=== PATIENT | female | born 1930 | race Caucasian/White ===

== ENCOUNTER → 2016-11-21 | Outpatient (CLI) | payer OTHER, MEDICARE | LOC: FIMAGING 16:46 | PROVIDERS: ATTEND Physical Medicine & Rehabilitation | DX: M79.662 Pain in left lower leg (principal) ==

== ENCOUNTER → 2017-01-07 | Outpatient (CLI) | payer OTHER, MEDICARE | LOC: BHCLAF 11:30 | PROVIDERS: ATTEND Internal Medicine Cardiovascular Disease | DX: I35.0 Nonrheumatic aortic (valve) stenosis (principal); I34.0 Nonrheumatic mitral (valve) insufficiency; I10 Essential (primary) hypertension | CPT/HCPCS: 93306-PO ==

== ENCOUNTER 2017-03-11 12:35 | Inpatient (IN) | payer OTHER, MEDICARE ==
--- NOTE | 2017-03-11 12:54 | EDPHY ---
H & P Time Seen by Provider: 03/11/17 12:51 HPI/ROS: CHIEF COMPLAINT: Right hip pain HISTORY OF PRESENT ILLNESS: The patient presents to the ED with complaints of right hip pain after she sustained a mechanical fall 1 hour prior double. The patient did not strike her head or lose consciousness. She has no complaints of associated chest pain or shortness of breath, numbness or weakness. The patient did sustain a contusion to her right forearm. The patient is not anticoagulated. The patient was able to ambulate with a significant amount of assistance following the fall. The patient of a history of bilateral hip and knee replacement. REVIEW OF SYSTEMS: A comprehensive 10 point review of systems is otherwise negative aside from elements mentioned in the history of present illness. Source: Patient Exam Limitations: No limitations - Personal History Tetanus Vaccine Date: allergy - Medical/Surgical History Other PMH: Past medical history: Hypertension, diabetes, multiple orthopedic joint replacements - Family History Significant Family History: No pertinent family hx - Social History Smoking Status: Never smoked - Physical Exam Exam: General Appearance: Alert, no distress Head: Atraumatic Eyes: Pupils equal, round, reactive ENT, Mouth: No hemotympanum, no oral trauma Neck: Nontender, trachea midline Respiratory: No chest wall tender, subcutaneous air, lungs clear bilaterally Cardiovascular: Regular rate and rhythm Abdomen: Abdomen is soft and nontender, pelvis stable Skin: Ecchymosis noted to right arm, no abrasion or laceration Back: No midline T/L/S pain Extremities: Tenderness to palpation and decreased range of motion right hip, no appreciated Neurological: A&Ox3, normal motor function, normal sensory exam Constitutional: Initial Vital Signs Temperature (C) 36.8 C 03/11/17 12:54 Heart Rate 97 03/11/17 12:54 Respiratory Rate 18 03/11/17 12:54 Blood Pressure 181/76 H 03/11/17 12:54 O2 Sat (%) 92 03/11/17 12:54 O2 Delivery Mode Room Air Allergies/Adverse Reactions: Tetanus Toxoid,Fl *RETIRED-03/10/12 [Tetanus Toxoid,Fluid] Allergy (Severe, Verified 09/03/11 11:07) Anaphylaxis aspirin Allergy (Intermediate, Verified 09/03/11 10:14) NAUSEA/VOMITING Home Medications: Medication Instructions Recorded Atorvastatin Calcium [Lipitor] 20 mg PO HS 09/04/11 Benazepril HCl [Lotensin] 10 mg PO DAILY 09/04/11 Calcium Carbonate [Tums] 500 mg PO PRN PRN 09/04/11 Cholecalciferol Vit D3 [Vitamin D 1,000 units PO DAILY 09/04/11 1000 units] Hydrochlorothiazide [HCTZ (*)] 25 mg PO DAILY 09/04/11 Valsartan [Diovan] 80 mg PO DAILY 09/04/11 Vit C/Dl-E AC/Lut/Copper/Znox 1 each PO DAILY 09/04/11 [Preservision Softgel] metFORMIN HCL [Glucophage 500 mg 1,000 mg PO BIDMEAL 09/04/11 (*)] Medical Decision Making - Diagnostics Imaging Results: Imaging Impressions Hip X-Ray 03/11/17 12:59 Impression: 1. No acute osseous findings. 2. Lucency adjacent to cement in the greater trochanter, possibly related to loosening. Femur X-Ray 03/11/17 14:00 Impression: No acute osseous findings. ED Course/Re-evaluation: The patient presents to the ED with acute right leg pain following a mechanical fall. The patient was taken for x-rays of her pelvis, hip and femur which demonstrate no evidence of an acute fracture. The patient is unable to safely weightbear in transfer. The patient lives independently and is unable to arrange home care services this evening. The patient will require admission to the hospital for further evaluation, PT OT evaluation and possible short term SNF placement. Consultation was made with Dr. Cee Calix from the hospitalist service who will admit the patient. Differential Diagnosis: Differential diagnosis considered includes hip fracture, sprain, dislocation, hip contusion Departure - Departure Disposition: [facility] Inpatient Acute Clinical Impression: Contusion of right leg Condition: Good
[2017-03-11] MEDS ORDERED: ACETAMINOPHEN 325 MG TAB PO PRN (16:17)
[2017-03-11] MEDS ORDERED: ONDANSETRON 4 MG/2 ML VIAL IVP PRN (16:17)
[2017-03-11] MEDS ORDERED: ONDANSETRON DISINTEGRATING 4 MG TAB PO PRN (16:17)
[2017-03-11] MEDS ORDERED: traMADol 50 MG TAB PO PRN (16:29)
[2017-03-11] MEDS ORDERED: D50W 25 GM/50 ML SYR IVP PRN (16:36)
[2017-03-11] MEDS ORDERED: hydrALAZINE 10 MG TAB PO PRN (16:37)
[2017-03-11 17:14] LABS: HEMATOCRIT 37.6 % (38.0-47.0); HEMOGLOBIN 12.1 g/dL (12.6-16.3); MEAN CELL HEMOGLOBIN 31.3 pg (27.9-34.1); MEAN CELL HEMOGLOBIN CONCENTR. 32.2 g/dL (32.4-36.7); MEAN CELL VOLUME 97.4 fL (81.5-99.8); RED BLOOD CELL COUNT 3.86 10^6/uL (4.18-5.33); RED CELL DISTRIBUTION WIDTH 13.1 % (11.5-15.2)
--- NOTE | 2017-03-11 17:16 | GHP ---
[f rep st] HISTORY AND PHYSICAL DATE OF ADMISSION: 03/11/2017 CHIEF COMPLAINT: Right hip and leg pain. HISTORY OF PRESENT ILLNESS: The patient is an 86-year-old female with a history of diabetes, hypertension and prior right hip and knee replacements, who presents to the emergency department with right hip and leg pain after a fall. She states she was walking her dog and was pulled onto the curb where she lost her balance and fell directly onto her right side. She complains of pain in her right hip as well as her right leg, and has some bruising on her right forearm and elbow. She states her hip and knee replacement were many, many years ago. She sustained a previous iliac spine fractures from a prior fall, per her report. She did not hit her head or lose consciousness. She has no other symptoms such as chest pain, shortness of breath, dizziness, or palpitations. In the emergency room, she was able to ambulate though required a significant amount of assistance. She does live alone. It was felt she warranted admission for therapy services to ensure safety prior to discharging home. PAST MEDICAL HISTORY: 1. Diabetes mellitus, non-insulin dependent. 2. Hypertension. 3. Multiple orthopedic joint replacements. MEDICATIONS: Please see Vyatta for complete updated outpatient medication list. ALLERGIES: Aspirin and tetanus toxoid. SOCIAL HISTORY: The patient lives alone independently. She denies alcohol or tobacco use. FAMILY HISTORY: Reviewed and noncontributory. REVIEW OF SYSTEMS: A 10-point review of systems was performed and is negative as per HPI. OBJECTIVE: VITAL SIGNS: Temperature is 36.8, blood pressure 181/76, heart rate 97, respiratory rate 18, she is 92% on room air. GENERAL: Patient is awake, alert, oriented, in no acute distress. HEENT: Head is atraumatic, normocephalic. Pupils equal, round, and reactive to light. Extraocular muscles intact. Oropharynx is clear. Mucous membranes are moist. NECK: Supple. There is no JVD. HEART: Regular rate and rhythm. There is 2/6 systolic ejection murmur. LUNGS: Clear to auscultation bilaterally. ABDOMEN: Soft, nondistended, nontender with normoactive bowel sounds. EXTREMITIES: She has large ecchymosis over her right forearm and elbow with full range of motion and no significant tenderness over her olecranon. Her right lower extremity, she has tenderness over the greater trochanter of her right hip. Pain is increased with flexion and abduction. There is also ecchymosis noted on the anterior lateral aspect of her right knee. Extremities otherwise are warm and well perfused with 2+ peripheral pulses. Sensation is intact. LABORATORY DATA: CBC and basic metabolic panel are sent and are currently pending. IMAGING STUDIES: X-ray of the hip and femur are personally reviewed and interpreted. There is no evidence of an acute fracture. CT hip is ordered for further evaluation. ASSESSMENT/PLAN: The patient is an 86-year-old female with history of diabetes , hypertension and prior right hip and knee replacements, presents to the emergency department with right hip pain after a ground level fall. 1. Right hip and knee pain. There is no evidence of fracture. She does have previous hip and knee replacement on this side. I am going to get a CT of her hip to ensure no underlying fracture that was not identified on the initial x- rays. She will require admission for acute physical therapy, occupational therapy. We will give Tylenol, tramadol, and p.r.n. IV morphine for pain control. 2. Diabetes mellitus type 2. I am awaiting blood sugar on her Chem panel. We will continue her glipizide and Actos and add sliding scale insulin for glycemic control. 3. Hypertension. She is hypertensive on arrival. This may be hastened by her acute pain. We will continue her outpatient medications including HCTZ and losartan, and I will add p.r.n. hydralazine if needed. 4. GAVINO / CKD - baseline Cr 1.7-1.8. She may be a bit dry. Will gently hydrate and recheck in am. 5. Deep venous thrombosis prophylaxis. The patient is moderate to high risk. Will give Lovenox. CODE STATUS: Patient is full code by default. If she requires ongoing hospitalization, this needs to be redressed. DISPOSITION: Patient is admitted to observation status. Pending results of her CT scan and her ability to safely ambulate, she could be a candidate for discharge tomorrow. /[id number]/MODL MTDD
[2017-03-11 18:52] LABS: ANION GAP 14 mEq/L (8-16); CALCIUM 10.6 mg/dL (8.5-10.4); CARBON DIOXIDE 21 mEq/l (22-31); CHLORIDE 105 mEq/L (97-110); GLOMERULAR FILTRATION RATE 24; GLUCOSE 240 mg/dL (70-100); SODIUM 140 mEq/L (134-144)
[2017-03-11] MEDS: traMADol 50 MG TAB PO PRN (20:07)
[2017-03-11] MEDS: INSULIN LISPRO 100 UNIT/ML SC SCH (20:38)
[2017-03-11] MEDS: BUDESONIDE 90 MCG MDI IH SCH (20:51)
[2017-03-11] MEDS ORDERED: NS 1,000 ML IV SCH (22:30)
[2017-03-11] MEDS: MELATONIN 3 MG TAB PO PRN (22:51)
[2017-03-12 05:40] LABS: ANION GAP 8 mEq/L (8-16); CALCIUM 8.3 mg/dL (8.5-10.4); CARBON DIOXIDE 21 mEq/l (22-31); CHLORIDE 112 mEq/L (97-110); CREATININE 1.4 mg/dL (0.6-1.0); GLOMERULAR FILTRATION RATE 36; GLUCOSE 128 mg/dL (70-100); SODIUM 141 mEq/L (134-144)
[2017-03-12] MEDS: ATORVASTATIN CALCIUM 20 MG TAB PO SCH (09:11)
[2017-03-12] MEDS: glipiZIDE XL 5 MG TAB PO SCH (09:11)
[2017-03-12] MEDS: HYDROCHLOROTHIAZIDE 25 MG TAB PO SCH (09:11)
[2017-03-12] MEDS: LOSARTAN POTASSIUM 25 MG TAB PO SCH (09:11)
[2017-03-12] MEDS: PIOGLITAZONE HCL 15 MG TAB PO SCH (09:11)
[2017-03-12] MEDS: INSULIN LISPRO 100 UNIT/ML SC SCH ×3 (09:13→18:47)
[2017-03-12] MEDS: ENOXAPARIN 30 MG/0.3 ML SYR SC SCH (09:17)
[2017-03-12] MEDS: BUDESONIDE 90 MCG MDI IH SCH ×2 (09:18→20:12)
[2017-03-12] MEDS: traMADol 50 MG TAB PO PRN (09:22)
[2017-03-12] MEDS: TIOTROPIUM INHALER 18 MCG/DOSE 5 DOSE/MDI IH SCH (09:36)
[2017-03-12] MEDS ORDERED: oxyCODONE IR 5 MG TAB PO PRN (13:35)
--- NOTE | 2017-03-12 14:05 | HOSPPROG ---
Hospitalist Progress Note Assessment/Plan: Patient is an 86-year-old female with a history of diabetes, hypertension prior right hip and knee replacements. She presented to the emergency department with right hip and leg pain after she sustained a fall. She was walking her dog and was pulled onto the curb she lost her balance fell directly onto her right side. Today is my 1st encounter with the patient chart reviewed. * Right-hip pain as well as right knee pain effecting her ability to ambulate CT scan of the hip shows nothing acute hip x-ray shows nothing acute will get a knee x-ray to evaluate her right knee patient having significant difficulty ambulating with PT and OT recommendation is a assisted facility * diabetes type 2 sliding scale * acute kidney injury on chronic kidney disease baseline creatinine is 1.7-1.8 today is 1.4 after receiving IV hydration * hypertension BP 159/61 * plan. The patient will require another midnight stay. This will make her inpatient status. she is unable to walk independently and is likely to fall again Subjective: Pat is complaining of pain at the right hip and right knee area. Objective: Vital Signs Temp Pulse Resp BP Pulse Ox 36.9 C 73 16 159/61 H 90 L 03/12/17 11:16 03/12/17 11:16 03/12/17 11:16 03/12/17 11:16 03/12/17 11:16 Laboratory Results 03/11/17 Unknown 03/12/17 04:49 03/11/17 03/12/17 03/13/17 05:59 05:59 05:59 Intake Total 300 Balance 300 - Physical Exam Constitutional: uncomfortable Eyes: PERRL Ears, Nose, Mouth, Throat: hearing normal Cardiovascular: regular rate and rhythym, systolic murmur Respiratory: no respiratory distress Gastrointestinal: normoactive bowel sounds Skin: other (ecchymosis over right elbow area/ r knee with ecchymosis on lateral side) Musculoskeletal: muscular tenderness, generalized weakness Neurologic: AAOx3 Psychiatric: interacting appropriately ICD10 Worksheet Patient Problems: Problems Problem Status Onset Contusion of right leg Acute
--- NOTE | 2017-03-12 16:51 | ASMTCMCOM ---
CM Note CM Note Notes: Pt has been admitted with a R hip and leg pain after a fall while walking her dog. Hx DM2, HTN, and prior hip and knee replacements. Lives alone. PT/OT recommending SNF d/c. is the earliest she can d/c to a SNF if medically cleared. Spoke with pt re therapy recommendations. She is agreeable to go and would like [facility] as she lives in [place]. Referral sent. CM will continue to follow for d/c needs. Date Signed: 03/12/2017 04:51 PM Electronically Signed By:Liliya Morrow
[2017-03-12] MEDS: oxyCODONE IR 5 MG TAB PO PRN (18:49)
[2017-03-12] MEDS: ACETAMINOPHEN 500 MG TAB PO SCH (21:10)
[2017-03-12] MEDS: MELATONIN 3 MG TAB PO PRN (21:14)
[2017-03-13] MEDS: oxyCODONE IR 5 MG TAB PO PRN ×4 (04:16→17:10)
[2017-03-13 05:32] LABS: ANION GAP 7 mEq/L (8-16); CALCIUM 9.3 mg/dL (8.5-10.4); CARBON DIOXIDE 24 mEq/l (22-31); CHLORIDE 107 mEq/L (97-110); CREATININE 1.7 mg/dL (0.6-1.0); GLOMERULAR FILTRATION RATE 28; GLUCOSE 136 mg/dL (70-100); SODIUM 138 mEq/L (134-144)
[2017-03-13] MEDS: ACETAMINOPHEN 500 MG TAB PO SCH ×3 (07:55→21:51)
[2017-03-13] MEDS: glipiZIDE XL 5 MG TAB PO SCH (07:57)
[2017-03-13] MEDS: HYDROCHLOROTHIAZIDE 25 MG TAB PO SCH (07:58)
[2017-03-13] MEDS: LOSARTAN POTASSIUM 25 MG TAB PO SCH (07:58)
[2017-03-13] MEDS: ATORVASTATIN CALCIUM 20 MG TAB PO SCH (07:58)
[2017-03-13] MEDS: PIOGLITAZONE HCL 15 MG TAB PO SCH (07:59)
[2017-03-13] MEDS: ENOXAPARIN 30 MG/0.3 ML SYR SC SCH (08:00)
[2017-03-13] MEDS: INSULIN LISPRO 100 UNIT/ML SC SCH ×3 (08:03→17:19)
[2017-03-13] MEDS: BUDESONIDE 90 MCG MDI IH SCH ×2 (08:14→19:52)
[2017-03-13] MEDS: TIOTROPIUM INHALER 18 MCG/DOSE 5 DOSE/MDI IH SCH (08:28)
--- NOTE | 2017-03-13 08:41 | HOSPPROG ---
Hospitalist Progress Note Assessment/Plan: Patient is an 86-year-old female with a history of diabetes, hypertension prior right hip and knee replacements. She presented to the emergency department with right hip and leg pain after she sustained a fall. She was walking her dog and was pulled onto the curb she lost her balance fell directly onto her right side. * Right-hip pain as well as right knee pain effecting her ability to ambulate CT scan of the hip shows nothing acute hip x-ray shows nothing acute knee x-ray showed nothing acute patient having significant difficulty ambulating with PT and OT recommendation is a snf facility * diabetes type 2 sliding scale * acute kidney injury on chronic kidney disease baseline creatinine is 1.7-1.8 * hypertension BP 155/65 * plan. She will need a SNF for rehab/ she is better today with activity with use of pain medications. Subjective: Pat is having some pain to her right knee and right hip area but says it is better today. Objective: Vital Signs Temp Pulse Resp BP Pulse Ox 36.6 C 67 18 155/65 H 92 03/13/17 07:30 03/13/17 07:30 03/13/17 07:30 03/13/17 07:30 03/13/17 07:30 Laboratory Results 03/13/17 05:00 03/12/17 03/13/17 03/14/17 05:59 05:59 05:59 Intake Total 1000 Output Total 300 Balance 1000 -300 - Physical Exam Constitutional: uncomfortable Eyes: PERRL Ears, Nose, Mouth, Throat: hard of hearing Cardiovascular: regular rate and rhythym, systolic murmur (2/5 holosystolic murmur and left sternal border) Respiratory: no respiratory distress, other (dry cough) Gastrointestinal: normoactive bowel sounds Skin: warm Musculoskeletal: muscular tenderness, generalized weakness Neurologic: AAOx3 Psychiatric: interacting appropriately ICD10 Worksheet Patient Problems: Problems Problem Status Onset Contusion of right leg Acute
[2017-03-13] MEDS ORDERED: MAGNESIUM HYDROXIDE 30 ML UDCUP PO PRN (11:43)
[2017-03-13] MEDS ORDERED: BISACODYL 10 MG SUPP PR PRN (11:43)
[2017-03-13] MEDS ORDERED: POLYETHYLENE GLYCOL 3350 17 GM PKT PO PRN (11:43)
[2017-03-13] MEDS ORDERED: LACTULOSE 20 GM/30 ML UDCUP PO PRN (11:43)
[2017-03-13] MEDS: SENNOSIDES/DOCUSATE SODIUM TAB PO SCH (21:52)
[2017-03-14] MEDS: oxyCODONE IR 5 MG TAB PO PRN ×4 (02:28→22:01)
[2017-03-14] MEDS: glipiZIDE XL 5 MG TAB PO SCH (08:25)
[2017-03-14] MEDS: SENNOSIDES/DOCUSATE SODIUM TAB PO SCH ×2 (08:29→21:31)
[2017-03-14] MEDS: ATORVASTATIN CALCIUM 20 MG TAB PO SCH (08:29)
[2017-03-14] MEDS: LOSARTAN POTASSIUM 25 MG TAB PO SCH (08:30)
[2017-03-14] MEDS: ACETAMINOPHEN 500 MG TAB PO SCH ×3 (08:30→21:32)
[2017-03-14] MEDS: PIOGLITAZONE HCL 15 MG TAB PO SCH (08:32)
[2017-03-14] MEDS: HYDROCHLOROTHIAZIDE 25 MG TAB PO SCH (08:32)
[2017-03-14] MEDS: ENOXAPARIN 30 MG/0.3 ML SYR SC SCH (08:33)
[2017-03-14] MEDS: INSULIN LISPRO 100 UNIT/ML SC SCH ×3 (08:33→17:55)
[2017-03-14] MEDS: TIOTROPIUM INHALER 18 MCG/DOSE 5 DOSE/MDI IH SCH (09:16)
[2017-03-14] MEDS: BUDESONIDE 90 MCG MDI IH SCH ×2 (09:16→20:37)
--- NOTE | 2017-03-14 14:59 | HOSPPROG ---
Hospitalist Progress Note Assessment/Plan: Patient is an 86-year-old female with a history of diabetes, hypertension prior right hip and knee replacements. She presented to the emergency department with right hip and leg pain after she sustained a fall. She was walking her dog and was pulled onto the curb she lost her balance fell directly onto her right side. First encounter, chart reviewed. * Right-hip pain as well as right knee pain effecting her ability to ambulate CT scan of the hip shows nothing acute hip x-ray shows nothing acute knee x-ray showed nothing acute patient having significant difficulty ambulating with PT and OT recommendation is a half-way facility will get Lumbar MRI to see if pain is from back * diabetes type 2 sliding scale * acute kidney injury on chronic kidney disease baseline creatinine is 1.7-1.8 * hypertension BP 155/65 * plan. She will need a SNF for rehab/ she is better today with activity with use of pain medications. still having some pain. Subjective: Knee feels better but hip hurts. Objective: Vital Signs Temp Pulse Resp BP Pulse Ox 36.7 C 74 16 147/72 H 96 03/14/17 07:55 03/14/17 07:55 03/14/17 07:55 03/14/17 08:32 03/14/17 07:55 Laboratory Results 03/13/17 05:00 03/13/17 03/14/17 03/15/17 05:59 05:59 05:59 Intake Total 1000 1600 Output Total 1150 Balance 1000 450 - Physical Exam Constitutional: no apparent distress, appears nourished, not in pain Eyes: PERRL, anicteric sclera, EOMI Ears, Nose, Mouth, Throat: moist mucous membranes, hearing normal, ears appear normal Cardiovascular: regular rate and rhythym, No JVD, No edema Respiratory: no respiratory distress, no rales or rhonchi, reduced air movement Gastrointestinal: normoactive bowel sounds, No tenderness, No ascites Skin: warm, normal color, No erythema Musculoskeletal: no joint effusions, pain with ROM, generalized weakness Neurologic: AAOx3 Psychiatric: interacting appropriately, not anxious, not encephalopathic, thought process linear ICD10 Worksheet Patient Problems: Problems Problem Status Onset Contusion of right leg Acute
[2017-03-15] MEDS: oxyCODONE IR 5 MG TAB PO PRN (03:01)
[2017-03-15] MEDS: PIOGLITAZONE HCL 15 MG TAB PO SCH (08:18)
[2017-03-15] MEDS: ATORVASTATIN CALCIUM 20 MG TAB PO SCH (08:18)
[2017-03-15] MEDS: LOSARTAN POTASSIUM 25 MG TAB PO SCH (08:18)
[2017-03-15] MEDS: glipiZIDE XL 5 MG TAB PO SCH (08:18)
[2017-03-15] MEDS: SENNOSIDES/DOCUSATE SODIUM TAB PO SCH ×2 (08:18→20:43)
[2017-03-15] MEDS: HYDROCHLOROTHIAZIDE 25 MG TAB PO SCH (08:18)
[2017-03-15] MEDS: INSULIN LISPRO 100 UNIT/ML SC SCH ×3 (08:19→18:22)
[2017-03-15] MEDS: ENOXAPARIN 30 MG/0.3 ML SYR SC SCH (08:19)
[2017-03-15] MEDS: ACETAMINOPHEN 500 MG TAB PO SCH ×3 (08:19→22:05)
[2017-03-15] MEDS: BUDESONIDE 90 MCG MDI IH SCH ×2 (10:15→20:49)
[2017-03-15] MEDS: TIOTROPIUM INHALER 18 MCG/DOSE 5 DOSE/MDI IH SCH (10:15)
--- NOTE | 2017-03-15 10:49 | GCON ---
[f rep st] CONSULTATION NEUROSURGERY CONSULTATION CHIEF COMPLAINT: Right buttock and leg pain. HISTORY OF PRESENT ILLNESS: The patient is an 86-year-old female patient, who presented to the emergency room after a fall this past Saturday, when she was walking her dog and tripped. She has been admitted to the medicine service, and they have been working on controlling her pain. She recently underwent an MRI of the lumbar spine, which showed significant degeneration, and the neurosurgery service was subsequently consulted. On examination today, the patient is resting in a chair and has just finished her breakfast. She states that she has severe pain in her right buttock and down the right leg to the level of about the knee. She also had some pain in her toes this morning. She states that prior to the fall she was fairly independent and could walk on her own, however, this pain has been so severe that she is not able to put much weight on that right leg. She denies any new numbness or tingling, weakness in her left leg or other complaints at this time. PAST MEDICAL HISTORY: Diabetes, hypertension, prior orthopedic joint replacement. HOME MEDICATIONS: Please see outpatient med list. ALLERGIES: To aspirin and tetanus toxoid. SOCIAL HISTORY: Patient lives alone, with her dog. She does have some children who live in the area, who check in on her. She denied alcohol or tobacco use. FAMILY HISTORY: The patient has living children. REVIEW OF SYSTEMS: Please see the above mentioned in the HPI. PHYSICAL EXAMINATION: VITAL SIGNS: Blood pressure 139/72, heart rate 68, respirations 16, O2 sat is 95% on 3 L of oxygen via nasal cannula. Temperature is 36.7. GENERAL: This is an elderly female patient, in no acute distress. HEAD: Normocephalic and atraumatic. NEURO: Motor examination of bilateral lower extremities, her right quad is approximately 4/5, left quad is 5/5. She has pain with flexion extension at the right knee, and approximately 5-/5 on the right. She has 5/5 on the left for flexion extension of the knee. Plantar flexion is 5/5 bilaterally. Dorsiflexion is approximately 5-/5 on the right, and 5/5 on the left. She has intact sensation throughout her legs. She moves her arms well without any obvious deficits. LABORATORY: White blood cells 11.0, red blood cells 3.86, hemoglobin 12.1, hematocrit 37.6, MCV 97.4, RDW 13.1. Sodium 138, potassium 4.0, chloride 107, carbon dioxide 24, anion gap 7, BUN 39, creatinine 1.7, GFR 28, glucose was 194 , calcium was 9.3. IMAGING: Hip x-ray of the right hip, no acute osseous findings, lucency adjacent to cement in the greater trochanter possibly related to loosening. Femur x-ray on the right, no acute osseous findings. CT of the right hip without contrast, status post right total hip arthroplasty. No acute fracture or complication is identified. No features of loosening identified. Knee x-ray : Status post right total knee arthroplasty. 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 Please see detailed description bilevel above. 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 PLAN: Dr. White and I have seen the patient together, at approximately 9:45 a.m., this morning. Given the patient's advanced age, I would not recommend any surgical intervention at this time. The patient also states she is not interested in surgery. We have reviewed her MRI. She does not have any obvious fractures, however, she does have significant degeneration with associated stenosis that is severe at L2-3, L3-4 and L4-5. She has a grade 1 slip at the L4-L5 level as well. At this time, we have discussed treatment options with her, including medications and possible oral steroids versus a lumbar epidural steroid injection. We plan to discuss further with the medicine service regarding this, as the patient is a known diabetic and steroids may affect her blood glucose level. While she is here in the hospital , I would recommend she work with physical therapy and occupational therapy. Obviously, she is a fall risk and should ambulate with assistance only. Neurosurgery will continue to follow along with this patient. Please contact our office for any additional questions or concerns. /[id number]/MODL MTDD
--- NOTE | 2017-03-15 11:53 | HOSPPROG ---
Hospitalist Progress Note Assessment/Plan: Patient is an 86-year-old female with a history of diabetes, hypertension prior right hip and knee replacements. She presented to the emergency department with right hip and leg pain after she sustained a fall. She was walking her dog and was pulled onto the curb she lost her balance fell directly onto her right side. D/W Dr White * Right-hip pain as well as right knee pain effecting her ability to ambulate CT scan of the hip shows nothing acute hip x-ray shows nothing acute knee x-ray showed nothing acute patient having significant difficulty ambulating with PT and OT recommendation is a [place] [facility] facility Lumbar MRI shows severe stenosis *Lumbar spine stenosis reviewed with pt and Dr White start neurontin 100mg daily and medrol dose pk consider NELLY if not improving * diabetes type 2 sliding scale may need to increase given addition of steriods change to diabetic diet * acute kidney injury on chronic kidney disease baseline creatinine is 1.7-1.8 * hypertension stable * plan. She will need a SNF for rehab trial new medications consider NELLY if still having some pain. Subjective: Up in the chair. Still having pain with walking. Objective: Vital Signs Temp Pulse Resp BP Pulse Ox 36.7 C 68 16 139/72 H 95 03/15/17 07:49 03/15/17 07:49 03/15/17 07:49 03/15/17 08:18 03/15/17 07:49 Laboratory Results 03/13/17 05:00 03/14/17 03/15/17 03/16/17 05:59 05:59 05:59 Intake Total 1600 Output Total 1150 850 Balance 450 -850 - Physical Exam Constitutional: appears nourished, chronically ill appearing, uncomfortable Eyes: PERRL, anicteric sclera, EOMI Ears, Nose, Mouth, Throat: moist mucous membranes, hearing normal, ears appear normal Cardiovascular: No JVD, No tachycardia, No edema Respiratory: no respiratory distress, no rales or rhonchi, reduced air movement Gastrointestinal: normoactive bowel sounds, No tenderness, No ascites Skin: warm, normal color, No mottled Musculoskeletal: pain with ROM, muscular tenderness, abnormal gait, generalized weakness Neurologic: AAOx3 Psychiatric: interacting appropriately, not anxious, not encephalopathic, thought process linear ICD10 Worksheet Patient Problems: Problems Problem Status Onset Contusion of right leg Acute
[2017-03-15] MEDS: methylPREDNISolone 4 MG TAB PO SCH ×4 (12:35→20:43)
[2017-03-15] MEDS: GABAPENTIN 100 MG CAP PO SCH (12:35)
--- NOTE | 2017-03-15 16:07 | ASMTCMCOM ---
CM Note CM Note Notes: Neurosurgery consulted, pt had lumbar MRI, no fractures and has significant degeneration w associated stenosis and a grade 1 slip. Trial of new medications. Pt can d/c to [facility] when medically stable. [facility] sent clinical updates in [employer] today. Date Signed: 03/15/2017 04:06 PM Electronically Signed By:ALEXSANDRA Reeder
[2017-03-15] MEDS ORDERED: INSULIN LISPRO 100 UNIT/ML SC ONE (22:38)
[2017-03-16] MEDS: methylPREDNISolone 4 MG TAB PO SCH ×3 (07:48→18:49)
[2017-03-16] MEDS: HYDROCHLOROTHIAZIDE 25 MG TAB PO SCH (07:49)
[2017-03-16] MEDS: LOSARTAN POTASSIUM 25 MG TAB PO SCH (07:49)
[2017-03-16] MEDS: INSULIN LISPRO 100 UNIT/ML SC SCH ×3 (07:58→17:51)
--- NOTE | 2017-03-16 08:27 | NEUSURGPN ---
Assessment/Plan: 86y/o female with low back pain, RLE pain and degeneration worst at L4/5. Patient states her pain is still present but the medications are helping. Discussed possible NELLY at L4/5 but she would liek to hold off on this option today Continue to optimize pain management PT/OT as tolerated Please notify SN with any change in neuro/motor exam Subjective: low back pain and right leg pain when OOB, denies pain when in bed Objective: NAD A&Ox3 MAEx4 5/5 and equal in BUE and BLE. Sensation intact - Physician Discussed Patient with : Desha[facility] Neurosurgery Physical Exam - Vitals, I&O, Labs I and O 03/15/17 03/16/17 03/17/17 05:59 05:59 05:59 Output Total 850 400 200 Balance -850 -400 -200 Output: Urine (ml) 850 400 200 Bedpan 850 Bedside Commode 400 200 Other: Intake Quantity Yes Sufficient Number of Voids Bedpan 1 Vital Signs Temp Pulse Resp BP Pulse Ox 36.8 C 82 16 178/70 H 95 03/16/17 07:19 03/16/17 07:19 03/16/17 07:19 03/16/17 07:19 03/16/17 07:19 Laboratory Results 03/13/17 05:00 ICD10 Worksheet Patient Problems: Problems Problem Status Onset Contusion of right leg Acute
[2017-03-16] MEDS: TIOTROPIUM INHALER 18 MCG/DOSE 5 DOSE/MDI IH SCH (09:01)
[2017-03-16] MEDS: BUDESONIDE 90 MCG MDI IH SCH ×2 (09:01→20:53)
[2017-03-16] MEDS: ENOXAPARIN 30 MG/0.3 ML SYR SC SCH (09:16)
[2017-03-16] MEDS: ACETAMINOPHEN 500 MG TAB PO SCH ×3 (09:17→22:13)
[2017-03-16] MEDS: SENNOSIDES/DOCUSATE SODIUM TAB PO SCH ×2 (09:18→22:13)
[2017-03-16] MEDS: ATORVASTATIN CALCIUM 20 MG TAB PO SCH (09:19)
[2017-03-16] MEDS: GABAPENTIN 100 MG CAP PO SCH (09:19)
[2017-03-16] MEDS: glipiZIDE XL 5 MG TAB PO SCH (09:19)
[2017-03-16] MEDS: PIOGLITAZONE HCL 15 MG TAB PO SCH (09:19)
--- NOTE | 2017-03-16 11:39 | ASMTCMCOM ---
CM Note CM Note Notes: Pt ready for DC riday but [facility] is completely full and cannot take pt. [facility] is okay with waiting until tomorrow. Sendy in admissions at cannot for sure if there will be a bed tomorrow but expects a DC. C/M hansa follow. Date Signed: 03/16/2017 11:39 AM Electronically Signed By:Shaniqua Paulson LCSW
--- NOTE | 2017-03-16 12:04 | HOSPPROG ---
Hospitalist Progress Note Assessment/Plan: Patient is an 86-year-old female with a history of diabetes, hypertension prior right hip and knee replacements. She presented to the emergency department with right hip and leg pain after she sustained a fall. She was walking her dog and was pulled onto the curb she lost her balance fell directly onto her right side. * Right-hip pain as well as right knee pain effecting her ability to ambulate CT scan of the hip shows nothing acute hip x-ray shows nothing acute knee x-ray showed nothing acute patient having significant difficulty ambulating with PT and OT recommendation is a retirement facility Lumbar MRI shows severe stenosis pain better with steriods and neurontin hold off on NELLY for now cont PT/OT *Lumbar spine stenosis start neurontin 100mg daily and medrol dose pk consider NELLY if not improving less pain today * diabetes type 2 sliding scale may need to increase given addition of steriods change to diabetic diet * acute kidney injury on chronic kidney disease baseline creatinine is 1.7-1.8 * hypertension stable * plan. She will need a SNF for rehab trial new medications consider NELLY if still having some pain. likely DC to SNF in am Subjective: Feeling better. Pain decreased today. Objective: Vital Signs Temp Pulse Resp BP Pulse Ox 36.8 C 83 16 178/70 H 98 03/16/17 07:19 03/16/17 09:01 03/16/17 09:01 03/16/17 07:19 03/16/17 09:01 Laboratory Results 03/13/17 05:00 03/15/17 03/16/17 03/17/17 05:59 05:59 05:59 Output Total 850 400 200 Balance -850 -400 -200 - Physical Exam Constitutional: no apparent distress, not in pain Eyes: PERRL, anicteric sclera Ears, Nose, Mouth, Throat: moist mucous membranes, hearing normal Cardiovascular: No JVD, No edema Respiratory: no respiratory distress, reduced air movement Gastrointestinal: No tenderness, No ascites Skin: warm, normal color Musculoskeletal: abnormal gait, generalized weakness Neurologic: AAOx3 Psychiatric: not anxious, not encephalopathic ICD10 Worksheet Patient Problems: Problems Problem Status Onset Contusion of right leg Acute
[2017-03-16] MEDS ORDERED: methylPREDNISolone 4 MG TAB PO SCH (21:00)
[2017-03-16 21:55] LABS: GLUCOSE 371 mg/dL (70-100)
[2017-03-16] MEDS ORDERED: INSULIN LISPRO 100 UNIT/ML SC ONE (22:19)
[2017-03-17] MEDS: oxyCODONE IR 5 MG TAB PO PRN ×2 (05:09→22:11)
[2017-03-17] MEDS: methylPREDNISolone 4 MG TAB PO SCH ×4 (08:29→22:10)
[2017-03-17] MEDS: ENOXAPARIN 30 MG/0.3 ML SYR SC SCH (08:56)
[2017-03-17] MEDS: ACETAMINOPHEN 500 MG TAB PO SCH ×3 (08:57→22:12)
[2017-03-17] MEDS: PIOGLITAZONE HCL 15 MG TAB PO SCH (08:58)
[2017-03-17] MEDS: SENNOSIDES/DOCUSATE SODIUM TAB PO SCH ×2 (08:58→22:13)
[2017-03-17] MEDS: ATORVASTATIN CALCIUM 20 MG TAB PO SCH (08:58)
[2017-03-17] MEDS: INSULIN LISPRO 100 UNIT/ML SC SCH ×3 (08:59→17:40)
[2017-03-17] MEDS: GABAPENTIN 100 MG CAP PO SCH (08:59)
[2017-03-17] MEDS: glipiZIDE XL 5 MG TAB PO SCH (09:00)
[2017-03-17] MEDS: HYDROCHLOROTHIAZIDE 25 MG TAB PO SCH (09:00)
[2017-03-17] MEDS ORDERED: NON-FORMULARY NEW DRUG (Vit C/Dl-E Ac/Lut/Copper/Znox [Preservision Softgel] 1 EACH) PO SCH (09:00)
[2017-03-17] MEDS: PRESERVISION AREDS2 FORMULA EYE VIT 1 EACH PO SCH ×2 (09:02→22:10)
[2017-03-17] MEDS: LOSARTAN POTASSIUM 25 MG TAB PO SCH (09:06)
--- NOTE | 2017-03-17 10:06 | NEUSURGPN ---
Assessment/Plan: 86y/o female with low back pain, RLE pain and degeneration worst at L4/5. Patient states her pain is still present but the medications are helping. Discussed possible NELLY at L4/5 but she would like to hold on this option. Will sign off at this time. Would recommended patient follows up with Dr. White [phone] 2-4 weeks. Continue to optimize pain management PT/OT as tolerated Please notify NS with any change in neuro/motor exam Subjective: right side pain over her hip and low back pain Objective: NAD A&Ox3 MAEx4 5/5 and equal in BUE and BLE. Pain with movements of the right upper leg and in the low back - Physician Discussed Patient with : [facility] Physical Exam - Vitals, I&O, Labs I and O 03/16/17 03/17/17 03/18/17 05:59 05:59 05:59 Intake Total 400 Output Total 400 200 Balance -400 200 Intake: Oral (ml) 400 Output: Urine (ml) 400 200 Bedside Commode 400 200 Other: Intake Quantity Yes Yes Sufficient Number of Voids Bedside Commode 1 Number of Stools Bedside Commode 1 Vital Signs Temp Pulse Resp BP Pulse Ox 36.6 C 71 14 178/75 H 97 03/17/17 08:00 03/17/17 08:00 03/17/17 08:00 03/17/17 08:00 03/17/17 08:00 Laboratory Results 03/16/17 21:40 ICD10 Worksheet Patient Problems: Problems Problem Status Onset Contusion of right leg Acute
[2017-03-17] MEDS: BUDESONIDE 90 MCG MDI IH SCH ×2 (10:39→20:03)
[2017-03-17] MEDS: TIOTROPIUM INHALER 18 MCG/DOSE 5 DOSE/MDI IH SCH (10:40)
[2017-03-17 12:32] LABS: GLUCOSE 328 mg/dL (70-100)
--- NOTE | 2017-03-17 13:36 | HOSPPROG ---
Hospitalist Progress Note Assessment/Plan: Patient is an 86-year-old female with a history of diabetes, hypertension prior right hip and knee replacements. She presented to the emergency department with right hip and leg pain after she sustained a fall. She was walking her dog and was pulled onto the curb she lost her balance fell directly onto her right side. * Right-hip pain as well as right knee pain effecting her ability to ambulate CT scan of the hip shows nothing acute hip x-ray shows nothing acute knee x-ray showed nothing acute patient having significant difficulty ambulating with PT and OT recommendation is a [facility] facility Lumbar MRI shows severe stenosis pain better with steroids and neurontin but still unable to ambulate NELLY ordered for am 03/18 cont PT/OT *Lumbar spine stenosis neurontin 100mg daily and medrol dose pk NELLY ordered lovenox on hold * diabetes type 2 sliding scale increased BG due to prednisone may need to increase given addition of steriods diabetic diet * acute kidney injury on chronic kidney disease baseline creatinine is 1.7-1.8 * hypertension stable * plan. She will need a SNF for rehab, [facility] cont new medications NELLY in the am per IR, pt very nervous about it Subjective: Up in chair. Still having pain. Unable to walk well. Tearful and nervous. Objective: Vital Signs Temp Pulse Resp BP Pulse Ox 36.6 C 71 16 178/75 H 97 03/17/17 08:00 03/17/17 10:43 03/17/17 10:43 03/17/17 08:00 03/17/17 10:43 Laboratory Results 03/17/17 12:00 03/16/17 03/17/17 03/18/17 05:59 05:59 05:59 Intake Total 400 Output Total 400 200 Balance -400 200 - Physical Exam Constitutional: appears nourished, chronically ill appearing, uncomfortable Eyes: PERRL, anicteric sclera, EOMI Ears, Nose, Mouth, Throat: moist mucous membranes, hearing normal, ears appear normal Cardiovascular: No JVD, No tachycardia, No edema Respiratory: no respiratory distress, no rales or rhonchi, reduced air movement Gastrointestinal: normoactive bowel sounds, No tenderness, No ascites Skin: warm, normal color, No erythema Musculoskeletal: pain with ROM, muscular tenderness, abnormal gait, generalized weakness Neurologic: AAOx3 Psychiatric: interacting appropriately, not encephalopathic, thought process linear, anxious ICD10 Worksheet Patient Problems: Problems Problem Status Onset Contusion of right leg Acute
--- NOTE | 2017-03-17 15:14 | ASMTCMCOM ---
CM Note CM Note Notes: Contacted [facility] about patient's possible discharge Saturday after an epidural injection for hip and back pain. Date Signed: 03/17/2017 03:13 PM Electronically Signed By:Lidia Cortes LCSW
[2017-03-18] MEDS ORDERED: methylPREDNISolone 4 MG TAB PO SCH (07:30)
[2017-03-18] MEDS: SENNOSIDES/DOCUSATE SODIUM TAB PO SCH ×2 (07:36→21:56)
[2017-03-18] MEDS: INSULIN LISPRO 100 UNIT/ML SC SCH ×3 (07:37→18:32)
--- NOTE | 2017-03-18 08:11 | NEUSURGPN ---
Assessment/Plan: Assessment: 86 y/o female with low back pain, RLE pain and degeneration worst at L4/5 Plan: -Patient states her pain is still present but the medications are helping. Discussed possible NELLY at L4/5 and she is scheduled for this at 1045 am -if does well with NELLY then would recommended patient to follow up with Dr. White 2-4 weeks -continue to optimize pain management -PT/OT as tolerated -Please notify NS with any change in neuro/motor exam Subjective: Awake and alert. NAD. No joyner/neck/chest/abd or gu complaints. No f/c/n/v/d. Objective: AAO x 3, PERRLA/EOMI no droop CN 2-12 grossly intact +lt touch 5/5 BUE/BLE = Neuro Check Frequency: per routine Urinary Catheter in Place: No - Physician Discussed Patient with : [facility] Physical Exam - Vitals, I&O, Labs I and O 03/17/17 03/18/17 03/19/17 05:59 05:59 05:59 Intake Total 400 200 Output Total 200 600 350 Balance 200 -400 -350 Intake: Oral (ml) 400 200 Output: Urine (ml) 200 600 350 Bedside Commode 200 600 350 Other: Intake Quantity Yes Yes Sufficient Number of Voids Bedside Commode 1 2 1 Number of Stools Bedside Commode 1 1 Vital Signs Temp Pulse Resp BP Pulse Ox 36.9 C 71 19 176/70 H 97 03/18/17 04:00 03/18/17 04:00 03/18/17 04:00 03/18/17 04:00 03/18/17 04:00 Laboratory Results 03/17/17 12:00 ICD10 Worksheet Patient Problems: Problems Problem Status Onset Contusion of right leg Acute
[2017-03-18] MEDS: LOSARTAN POTASSIUM 25 MG TAB PO SCH (08:29)
[2017-03-18] MEDS: GABAPENTIN 100 MG CAP PO SCH (08:29)
[2017-03-18] MEDS: HYDROCHLOROTHIAZIDE 25 MG TAB PO SCH (08:29)
[2017-03-18] MEDS: ACETAMINOPHEN 500 MG TAB PO SCH ×3 (08:29→21:51)
[2017-03-18] MEDS: BUDESONIDE 90 MCG MDI IH SCH (09:18)
[2017-03-18] MEDS: TIOTROPIUM INHALER 18 MCG/DOSE 5 DOSE/MDI IH SCH (09:20)
[2017-03-18] MEDS: ATORVASTATIN CALCIUM 20 MG TAB PO SCH (10:01)
--- NOTE | 2017-03-18 11:57 | HOSPPROG ---
Hospitalist Progress Note Assessment/Plan: Assessment: 86-year-old F p/w right hip/leg pain s/p mechanical fall Plan: # Right-hip pain/right knee pain. Suspect 2/2 combination of osteoarthritis and severe lumbar stenosis (on MRI), effecting her ability to ambulate - ongoing significant difficulty ambulating with PT and OT, will require SNF - NELLY today - cont gabapentin # Lumbar spine stenosis. Cont neurontin 100mg daily, stop medrol dose pack since she's getting NELLY # Diabetes type 2. Exacerbated by steroids, stopped dose pack - cont on sulfonureas and glitizone - cont ISS while inpt, will not require insulin as outpt # Acute kidney injury on chronic kidney disease stage III. Resolved - baseline creatinine is 1.7-1.8 # Hypertension. Chronic, cont ARB, thiazide # Atelectasis. Acute, 2/2 immobility - IS, will cont at SNF w/ o2 if needed Diet. ADA PPx. High risk, SCDs, hold pharm for NELLY Code. Full Dispo. ADD 03/19 to [facility], getting injection today and monitor post- procedurally for pain mgmt Subjective: no pain at rest, moving bowels Objective: Vital Signs Temp Pulse Resp BP Pulse Ox 36.3 C 71 16 195/76 H 98 03/18/17 08:00 03/18/17 08:00 03/18/17 09:21 03/18/17 08:00 03/18/17 09:21 Laboratory Results 03/17/17 12:00 03/17/17 03/18/17 03/19/17 05:59 05:59 05:59 Intake Total 400 200 Output Total 200 600 350 Balance 200 -400 -350 - Pending Discharge Pending Discharge Within 24 Hours: Yes Pending Discharge Date: 03/19/17 Pending Discharge Time: 11:00 - Physical Exam Constitutional: no apparent distress, not in pain, other (aged appearing), No uncomfortable Cardiovascular: systolic murmur (II/ at sternum and apex), No irregularly irregular, No tachycardia, No edema Respiratory: reduced air movement (in bilateral bases), No expiratory wheeze, No inspiratory crackles, No bronchial breath sounds Gastrointestinal: normoactive bowel sounds, soft, non-tender abdomen, no palpable masses Neurologic: AAOx3, sensation intact bilaterally, No weakness (motor 5/5 bilat distal LE), No facial droop Psychiatric: interacting appropriately, not anxious, not encephalopathic, thought process linear ICD10 Worksheet Patient Problems: Problems Problem Status Onset Contusion of right leg Acute
[2017-03-18] MEDS ORDERED: NS 1,000 ML IV SCH (12:00)
[2017-03-18] MEDS ORDERED: IOPAMIDOL (ISOVUE-M 300) 15 ML VIAL ONE (12:29)
[2017-03-18] MEDS ORDERED: TRIAMCINOLONE ACETONIDE 200 MG/5 ML MDV IM ONE (12:30)
[2017-03-18] MEDS ORDERED: NALOXONE HCL 0.4 MG/ML INJ ONE (12:48)
[2017-03-18] MEDS ORDERED: FLUMAZENIL 0.5 MG/5 ML MDV IVP ONE (12:48)
[2017-03-18] MEDS ORDERED: MIDAZOLAM 2 MG/2 ML VIAL ONE (12:48)
[2017-03-18] MEDS ORDERED: fentaNYL 100 MCG/2 ML INJ ONE (12:48)
--- NOTE | 2017-03-18 13:23 | POSTOPPROG ---
Post Op Note Date of Operation: 03/18/17 Surgeon: Joshua Mae Anesthesia: IV Sedation Pre-op Diagnosis: Lumbar spinal stenosis Post-op Diagnosis: Same Indication: Right sciatica Procedure: Lumbar epidural steroid injection Findings: Limited cephalad excursion from L4-5 access. 80 mg kenalog (2ml) Inf/Abcess present in the surg proc area at time of surgery?: No
[2017-03-18] MEDS: PIOGLITAZONE HCL 15 MG TAB PO SCH (15:04)
[2017-03-18] MEDS: glipiZIDE XL 5 MG TAB PO SCH (15:04)
[2017-03-18] MEDS: PRESERVISION AREDS2 FORMULA EYE VIT 1 EACH PO SCH ×2 (15:09→21:51)
[2017-03-18] MEDS: oxyCODONE IR 5 MG TAB PO PRN (21:54)
--- NOTE | 2017-03-19 07:18 | NEUSURGPN ---
Assessment/Plan: Assessment: 86 y/o female with low back pain, RLE pain and degeneration worst at L4/5 Plan: -Patient states her pain is still present but the medications are helping. Pt is s/p NELLY at L4/5 and she states that she felt a little bit of relief but still has pain. I spoke with her that the full effect of the injection can take up to 10-14 days -she declined any surgery considerations at this time -recommend patient to follow up with Dr. White 2-4 weeks -continue to optimize pain management-I increased her dose of gabapentin to BID -PT/OT as tolerated -Please notify NS with any change in neuro/motor exam -NS to sign off at this time Subjective: Awake and alert. NAD. No new events overnight. No joyner/neck/chest/abd or gu complaints. No f/c/n/v/d. Objective: AAO x 3, PERRLA/EOMI no droop CN 2-12 grossly intact +lt touch 5/5 BUE/BLE = Neuro Check Frequency: per routine Urinary Catheter in Place: No - Physician Discussed Patient with Dr.: White Neurosurgery Physical Exam - Vitals, I&O, Labs I and O 03/18/17 03/19/17 03/20/17 05:59 05:59 05:59 Intake Total 200 50 Output Total 600 350 Balance -400 -300 Intake: Oral (ml) 200 IV Intake (ml) 50 Output: Urine (ml) 600 350 Bedside Commode 600 350 Other: Intake Quantity Yes Yes Sufficient Number of Voids Bedside Commode 2 3 Number of Stools Bedside Commode 1 Vital Signs Temp Pulse Resp BP Pulse Ox 36.6 C 66 19 144/71 H 94 03/18/17 23:46 03/18/17 23:46 03/18/17 23:46 03/18/17 23:46 03/18/17 23:46 Laboratory Results 03/17/17 12:00 ICD10 Worksheet Patient Problems: Problems Problem Status Onset Contusion of right leg Acute
[2017-03-19] MEDS ORDERED: methylPREDNISolone 4 MG TAB PO SCH (07:30)
[2017-03-19] MEDS: TIOTROPIUM INHALER 18 MCG/DOSE 5 DOSE/MDI IH SCH (08:29)
[2017-03-19] MEDS: INSULIN LISPRO 100 UNIT/ML SC SCH ×2 (08:35→13:02)
[2017-03-19] MEDS: PRESERVISION AREDS2 FORMULA EYE VIT 1 EACH PO SCH (08:36)
[2017-03-19] MEDS: ATORVASTATIN CALCIUM 20 MG TAB PO SCH (08:36)
[2017-03-19] MEDS: BUDESONIDE 90 MCG MDI IH SCH ×2 (08:36→09:17)
[2017-03-19] MEDS: ACETAMINOPHEN 500 MG TAB PO SCH ×2 (08:36→15:47)
[2017-03-19] MEDS: glipiZIDE XL 5 MG TAB PO SCH (08:37)
[2017-03-19] MEDS: LOSARTAN POTASSIUM 25 MG TAB PO SCH (08:37)
[2017-03-19] MEDS: HYDROCHLOROTHIAZIDE 25 MG TAB PO SCH (08:37)
[2017-03-19] MEDS: PIOGLITAZONE HCL 15 MG TAB PO SCH (08:37)
[2017-03-19] MEDS ORDERED: GABAPENTIN 100 MG CAP PO SCH (09:00)
[2017-03-19] MEDS: SENNOSIDES/DOCUSATE SODIUM TAB PO SCH (09:43)
--- NOTE | 2017-03-19 11:26 | HOSPPROG ---
Hospitalist Progress Note Assessment/Plan: Assessment: 86-year-old F p/w right hip/leg pain s/p mechanical fall Plan: # Right-hip pain/right knee pain. Suspect 2/2 combination of osteoarthritis and severe lumbar stenosis (on MRI), effecting her ability to ambulate - ongoing significant difficulty ambulating with PT and OT, will require SNF - NELLY today - cont gabapentin # Lumbar spine stenosis. Cont neurontin 100mg daily, stop medrol dose pack since she's getting NELLY # Diabetes type 2. Exacerbated by steroids, stopped dose pack - cont on sulfonureas and glitizone - cont ISS while inpt, will not require insulin as outpt # Acute kidney injury on chronic kidney disease stage III. Resolved - baseline creatinine is 1.7-1.8 # Hypertension. Chronic, cont ARB, thiazide # Atelectasis. Acute, 2/2 immobility - IS, will cont at SNF w/ o2 if needed Diet. ADA PPx. High risk, SCDs, hold pharm for NELLY Code. Full Dispo. to snf today > 30 minutes Subjective: has bed at rehab Objective: Vital Signs Temp Pulse Resp BP Pulse Ox 36.6 C 71 14 168/65 H 97 03/19/17 07:32 03/19/17 08:36 03/19/17 08:36 03/19/17 08:37 03/19/17 08:36 Laboratory Results 03/17/17 12:00 03/18/17 03/19/17 03/20/17 05:59 05:59 05:59 Intake Total 200 50 Output Total 600 350 Balance -400 -300 - Physical Exam Constitutional: no apparent distress, appears nourished Eyes: PERRL, anicteric sclera Ears, Nose, Mouth, Throat: moist mucous membranes, hearing normal Cardiovascular: regular rate and rhythym, no murmur, rub, or gallop Respiratory: no respiratory distress, no rales or rhonchi Gastrointestinal: normoactive bowel sounds, soft, non-tender abdomen Genitourinary: no bladder fullness, No nielsen in urethra Skin: warm, normal color Musculoskeletal: full muscle strength Neurologic: AAOx3 ICD10 Worksheet Patient Problems: Problems Problem Status Onset Contusion of right leg Acute
--- NOTE | 2017-03-19 11:32 | PDIAF ---
- Diagnosis Diagnosis: fall Code Status: Full Code - Medication Management Discharge Medications: Medications to Continue on Transfer Atorvastatin Calcium [Lipitor 20 mg (*)] 20 mg PO DAILY 09/04/11 [Last Taken 05/17] Hydrochlorothiazide [HCTZ (*)] 25 mg PO DAILY 09/04/11 [Last Taken 03/11/17] Budesonide 90 Mcg INH [Pulmicort 90 Mcg Flexhaler (*)] 2 puffs IH BID 03/11/17 [ Last Taken 03/11/17] Calcitriol [Calcitriol (*)] 0.25 mcg PO MO 03/11/17 [Last Taken 03/11/17] Losartan Potassium [Cozaar 25 mg (*)] 25 mg PO DAILY 03/11/17 [Last Taken ] Multivitamins [Multivitamin (*)] 1 each PO HS 03/11/17 [Last Taken 03/10/17] Pioglitazone HCl [Actos 15mg (*)] 15 mg PO DAILY 03/11/17 [Last Taken 03/11/17] Tiotropium Inhaler [Spiriva Handihaler] 18 mcg IH DAILY 03/11/17 [Last Taken 05/17] glipiZIDE XL [Glucotrol Xl] 5 mg PO DAILY 03/11/17 [Last Taken 03/11/17] traMADol [Ultram 50 mg (*)] 25 - 50 mg PO Q6H PRN 03/11/17 [Last Taken Unknown] Vit C/Dl-E AC/Lut/Copper/Znox [Preservision Softgel] 1 each PO BID 03/16/17 [ Last Taken Unknown] Acetaminophen [Tylenol ES 500 mg (*)] 1,000 mg PO TID tab 03/19/17 [Last Taken Unknown] Enoxaparin [Lovenox] 30 mg SC DAILY syr 03/19/17 [Last Taken Unknown] Gabapentin [Neurontin 100 MG (*)] 100 mg PO BID cap 03/19/17 [Last Taken Unknown] Discharge Medications: Refer to the Discharge Home Medication list for PRN reason. - Orders Services needed: Registered Nurse, Physical Therapy, Occupational Therapy - Follow Up Care Current Providers and Referrals: Patient,NotPresent [Unknown] - As per Instructions
[2017-03-19 11:48] VITALS: RESP 16; TEMP 98.8
--- NOTE | 2017-03-19 12:03 | ASMTCMCOM ---
CM Note CM Note Notes: Pt medically stable for d/c to [facility]. Orders sent and pickup is 1600. JEANINE Beltre to call report. Date Signed: 03/19/2017 12:02 PM Electronically Signed By:ALEXSANDRA Reeder
--- NOTE | 2017-03-19 12:27 | GDS ---
[f rep st] DISCHARGE SUMMARY DISCHARGE DIAGNOSES: 1. Mechanical fall. 2. Lumbar stenosis, status post steroid injection. 3. Diabetes. 4. Hypertension. HOSPITAL COURSE: Consult during this admission was Neurosurgery. Please see admission history and p hysical by Dr. Cee Calix. The patient presented with fall without loss of consciousness and hip pain. She had no fractures. She had no evidence of infectious symptoms. She had a lumbar spine MRI showing significant degenerative disease; I refer the reader to the report. She underwent steroid i njection. She is currently going to [facility]. She was started on Neurontin by Neurosurgery. /[id number]/MODL
[2017-03-19 15:34] VITALS: BP 138/56; PULSE 80; O2SAT 94
[2017-03-20] MEDS ORDERED: methylPREDNISolone 4 MG TAB PO SCH (07:30)
--- NOTE | 2017-03-20 12:13 | ASDISCHSUM ---
Discharge Information Plan Status:SNF Medically Cleared to Leave: Discharge Date:03/19/2017 04:30 PM CM D/C Disposition: ADT D/C Disposition:[facility] Facility Projected Discharge Date:03/14/2017 11:00 AM Transportation at D/C:Wheelchair Van Discharge Delay Reason: Follow-Up Date:03/14/2017 11:00 AM Discharge Slot: Final Diagnosis: Placement Information Referral Type:*[facility]/SNF Referral ID:[id number] Provider Name:Rosario Morse Address 1:[address] [facility] [facility] Phone Number: Address 2: Fax Number: City:[place] Selection Factors: State:[place] Patient Contact Information Contact Name:JARET Relationship:Son Address:[address] Work Phone: City:[place] [facility] Phone: State/[facility] Code:[place] [address] Email: Financial Information Financial Class: Primary Plan Desc:MEDICARE INPATIENT Primary Plan Number:[id number] Secondary Plan Desc:[employer]/MDR SUPPLEMENT Secondary Plan Number:[id number] Assessment Information [facility] CM Progress Note CM Note CM Note Notes: Pt has been admitted with a R hip and leg pain after a fall while walking her dog. Hx DM2, HTN, and prior hip and knee replacements. Lives alone. PT/OT recommending SNF d/c. is the earliest she can d/c to a SNF if medically cleared. Spoke with pt re therapy recommendations. She is agreeable to go and would like [facility] as she lives in [place]. Referral sent. CM will continue to follow for d/c needs. Date Signed: 03/12/2017 04:51 PM Electronically Signed By:ALEXSANDRA Sharpe [facility] CM Progress Note CM Note CM Note Notes: Neurosurgery consulted, pt had lumbar MRI, no fractures and has significant degeneration w associated stenosis and a grade 1 slip. Trial of new medications. Pt can d/c to [facility] when medically stable. [employer] sent clinical updates in [employer] today. Date Signed: 03/15/2017 04:06 PM Electronically Signed By:ALEXSANDRA Reeder [facility] CM Progress Note CM Note CM Note Notes: Pt ready for DC riday but [facility] is completely full and cannot take pt. [facility] is okay with waiting until tomorrow. Sendy in admissions at cannot for sure if there will be a bed tomorrow but expects a DC. C/M hansa follow. Date Signed: 03/16/2017 11:39 AM Electronically Signed By:Shaniqua Paulson LCSW [facility] CM Progress Note CM Note CM Note Notes: Contacted [facility] about patient's possible discharge Saturday after an epidural injection for hip and back pain. Date Signed: 03/17/2017 03:13 PM Electronically Signed By:Lidia Cortes LCSW [facility] CM Progress Note CM Note CM Note Notes: Pt medically stable for d/c to [facility]. Orders sent and pickup is 1600. JEANINE Beltre to call report. Date Signed: 03/19/2017 12:02 PM Electronically Signed By:ALEXSANDRA Reeder Intervention Information Intervention Type:*LEDESMA-Signed Date of Service:03/12/2017 10:07 AM Patient Type:Observation Staff Member:Madonna Stout Hours: Discipline: Severity: Comment: Intervention Type:*IM-Signed Date of Service:03/19/2017 09:51 AM Patient Type:Inpatient Staff Member:Madonna Stout Hours: Discipline: Severity: Comment:
== END 2017-03-19 16:30 | DRG 552 ==
LOC: EDUNIT# → INTOOBSV 15:06 → F3N 17:52 → OBSVTOIN 03-12 14:14
PROVIDERS: ADMIT Hospitalist; ATTEND Hospitalist
PROC: 3E0S33Z Introduction of Anti-inflammatory into Epidural Space, Percutaneous Approach (ICD-10-PCS; principal; 2017-03-18 13:45)
PROC: 3E0S3BZ Introduction of Anesthetic Agent into Epidural Space, Percutaneous Approach (ICD-10-PCS; principal; 2017-03-18 13:45)
DX: M51.36 Other intervertebral disc degeneration, lumbar region (principal); M48.06 Spinal stenosis, lumbar region; M25.561 Pain in right knee; M25.551 Pain in right hip; W01.0XXA Fall on same level from slipping, tripping and stumbling without subsequent striking against object, initial encounter; Y93.K1 Activity, walking an animal; E11.9 Type 2 diabetes mellitus without complications; I12.9 Hypertensive chronic kidney disease with stage 1 through stage 4 chronic kidney disease, or unspecified chronic kidney disease; N18.3 Chronic kidney disease, stage 3 (moderate); Z96.641 Presence of right artificial hip joint; Z96.651 Presence of right artificial knee joint
CPT/HCPCS: 82947-QW; 97110-GP; 97116-GP; 97163-GP; 97165-GO; 97530-GO; 97530-GP; 97535-GO; G0378; G8978-GP-CL; G8979-GP-CJ; G8987-GO-CL; G8988-GO-CI; J1650; J1815; J2250; J2310; J3010; J3301; Q9967

== ENCOUNTER → 2017-05-31 | Outpatient (CLI) | payer OTHER, MEDICARE | LOC: CIMAGING 10:58 | PROVIDERS: ATTEND Internal Medicine | DX: S32.10XA Unspecified fracture of sacrum, initial encounter for closed fracture (principal); M46.1 Sacroiliitis, not elsewhere classified; M48.061 Spinal stenosis, lumbar region without neurogenic claudication; M48.07 Spinal stenosis, lumbosacral region; M51.36 Other intervertebral disc degeneration, lumbar region; M51.37 Other intervertebral disc degeneration, lumbosacral region; Z96.641 Presence of right artificial hip joint; Z96.642 Presence of left artificial hip joint | CPT/HCPCS: 72192-PO ==

== ENCOUNTER 2017-08-01 12:51 | Day surgery (SDC) | payer OTHER, MEDICARE ==
[2017-08-01] MEDS ORDERED: MIDAZOLAM 2 MG/2 ML VIAL IVP PRN (12:57)
[2017-08-01] MEDS ORDERED: NALOXONE HCL 0.4 MG/ML INJ IVP PRN (12:57)
[2017-08-01] MEDS ORDERED: GLUCAGON HCL 1 MG VIAL IVP PRN (12:57)
[2017-08-01] MEDS ORDERED: FLUMAZENIL 0.5 MG/5 ML MDV IVP PRN (12:57)
[2017-08-01] MEDS ORDERED: HEPARIN 10,000 UNIT/10 ML MDV (1,000 UNIT/ML) IVP PRN (12:57)
[2017-08-01] MEDS ORDERED: MEPERIDINE 25 MG/ML SYR IVP PRN (12:57)
[2017-08-01] MEDS ORDERED: ALTEPLASE 2 MG VIAL IVP PRN (12:57)
[2017-08-01] MEDS ORDERED: PROTAMINE SULFATE 50 MG/5 ML VIAL IVP PRN (12:57)
[2017-08-01] MEDS ORDERED: fentaNYL 100 MCG/2 ML INJ IVP PRN (12:57)
[2017-08-01] MEDS ORDERED: NS 1,000 ML IV SCH (13:00)
[2017-08-01 13:39] VITALS: PULSE 87; RESP 19
[2017-08-01] MEDS ORDERED: NALOXONE HCL 0.4 MG/ML INJ ONE (14:16)
[2017-08-01] MEDS ORDERED: MIDAZOLAM 2 MG/2 ML VIAL ONE (14:17)
[2017-08-01] MEDS ORDERED: FLUMAZENIL 0.5 MG/5 ML MDV IVP ONE (14:17)
[2017-08-01] MEDS ORDERED: fentaNYL 100 MCG/2 ML INJ ONE (14:17)
--- NOTE | 2017-08-01 14:24 | PDPROPOC ---
Sedation Plan of Care Sedation Plan of Care: vital signs stable, mental status noted, patient educated of risks, benefits, alternatives, patient can tolerate sedation ASA Classification: ASA 3 Planned drugs: fentanyl, midazolam Mallampati Score: Class 1 Mallampati Reference Image: Patient passed 3-3-2 rule?: Yes
--- NOTE | 2017-08-01 14:28 | PDGENHP ---
History & Physical Chief Complaint: BILATERAL LEG PAIN History of Present Illness: S3 FRACTURE. NOW PAIN IS BOTH HIPS, LT CALF AND LT TOES, LT LATERAL THIGH, RT KNEE, RT CALF, BILATERAL ACROSS THE PELVIC AREA. PAIN GOES AWAY AFTER PRESSURE OF SITTING DOWN. Pertinent Past, Social, Family History: PREVIOUS INJECTION AT L5-S1 HELPED FOR SOME TIME, BUT STOPPED HELPING 1 MONTH AGO. Relevant Physical Exam: CAN'T GET UP AT ALL. HURTS ALL OVER WITH ANY PART BEING TOUCHED. Cardiorespiratory Assessment: RRR, CTA
[2017-08-01] MEDS ORDERED: ONDANSETRON 4 MG/2 ML VIAL IVP PRN (15:47)
--- NOTE | 2017-08-01 15:50 | PDRADPN ---
Radiology Procedure Note Date of Procedure: 08/01/17 Radiologist: Lisa Fried Anesthesia: IV Sedation Pre-op Diagnosis: low back pain Post-op Diagnosis: same Indication: severe pain Procedure: caudal NELLY Finding(s): reproduction of pain Inf/Abcess present in the surg proc area at time of surgery?: No Complications: none
[2017-08-01] MEDS ORDERED: IOPAMIDOL (ISOVUE-M 300) 15 ML VIAL ONE (16:23)
[2017-08-01] MEDS ORDERED: TRIAMCINOLONE ACETONIDE 200 MG/5 ML MDV IM ONE (16:23)
[2017-08-01] MEDS ORDERED: LIDOCAINE 1% 300 MG/30 ML SDV ONE (16:23)
[2017-08-01 16:35] VITALS: TEMP 97.7
[2017-08-01 16:36] VITALS: BP 137/60; O2SAT 92
== END 2017-08-01 16:37 | disposition home or self-care (01) ==
LOC: FIMAGING 12:51
PROVIDERS: ATTEND Internal Medicine
PROC: 3E0S33Z Introduction of Anti-inflammatory into Epidural Space, Percutaneous Approach (ICD-10-PCS; principal; 2017-08-01 15:21)
PROC: 3E0S3BZ Introduction of Anesthetic Agent into Epidural Space, Percutaneous Approach (ICD-10-PCS; principal; 2017-08-01 15:21)
DX: M54.5 Low back pain (principal); M79.661 Pain in right lower leg; M79.662 Pain in left lower leg; M79.674 Pain in right toe(s); M48.061 Spinal stenosis, lumbar region without neurogenic claudication; S32.10XA Unspecified fracture of sacrum, initial encounter for closed fracture; S32.030A Wedge compression fracture of third lumbar vertebra, initial encounter for closed fracture; M51.36 Other intervertebral disc degeneration, lumbar region; M43.16 Spondylolisthesis, lumbar region
CPT/HCPCS: J2250; J2310; J3010; J3301; Q9967

== ENCOUNTER → 2018-04-02 | Outpatient (CLI) | payer OTHER, MEDICARE | LOC: BHFA 10:00 | PROVIDERS: ATTEND Internal Medicine Cardiovascular Disease | DX: I35.0 Nonrheumatic aortic (valve) stenosis (principal) ==

== ENCOUNTER → 2018-06-30 | Outpatient (CLI) | payer OTHER, MEDICARE | LOC: CIMAGING 10:25 | PROVIDERS: ATTEND Internal Medicine | DX: M48.48XA Fatigue fracture of vertebra, sacral and sacrococcygeal region, initial encounter for fracture (principal); M81.0 Age-related osteoporosis without current pathological fracture; Z96.641 Presence of right artificial hip joint; Z96.642 Presence of left artificial hip joint | CPT/HCPCS: 72192-PO ==